=== PATIENT | male | born 1945 | race Two or more races ===

== ENCOUNTER 2024-07-31 12:04 | Outpatient (CLI) | payer MEDICAID ==
[2024-07-31 12:41] LABS: Basophils # (auto) 0.1 10 ^3/uL (0-0.2); Basophils % (auto) 0.9 % (0.0-2.0); Eosinophils # (auto) 0.2 10 ^3/uL (0-0.8); Eosinophils % (auto) 2.2 % (0.0-7.0); Hematocrit 50.5 % (41.0-53.0); Hemoglobin 16.9 g/dL (13.5-17.5); Lymphocytes # (auto) 3.2 10 ^3/uL (0.4-5.4); Lymphocytes % (auto) 32.9 % (10.0-50.0); Mean Corpuscular Hemoglobin 29.8 pg (28.0-32.0); Mean Corpuscular Hgb Conc. 33.6 g/dL (32.0-36.0); Mean Corpuscular Volume 88.8 fL (80.0-100.0); Monocytes # (auto) 0.9 10 ^3/uL (0-1.3); Monocytes % (auto) 8.9 % (0.0-12.0); Neutrophils # (auto) 5.3 10 ^3/uL (1.6-8.6); Neutrophils % (auto) 55.1 % (37.0-80.0); Nucleated Red Blood Cells % 0.1 %; Platelet Count (auto) 327 10^3/uL (140-450); Red Blood Cells 5.69 10^6/uL (4.5-5.90); Red Cell Distribution Width 15.3 % (11.8-14.3); White Blood Cell 9.6 10^3/uL (4.4-10.8)
[2024-07-31 13:12] LABS: Alanine Aminotransferase 26 U/L (7-40); Anion Gap 7 (5-15); BUN/Creatinine Ratio 15.1 (10.0-20.0); Blood Urea Nitrogen 14 mg/dL (9-23); Chloride 104 mmol/L (98-107); Glucose 88 mg/dL (74-106); Potassium 3.5 mmol/L (3.5-5.1); Sodium 143 mmol/L (136-145); Triglycerides 113 mg/dL (< 150)
[2024-07-31 13:13] LABS: Aspartate Aminotransferase 19 U/L (13-40); Cholesterol 142 mg/dL (< 200); LDL Cholesterol 81 mg/dL (< 100)
[2024-07-31 13:14] LABS: Calcium 10.5 mg/dL (8.7-10.4); Carbon Dioxide 32 mmol/L (20-31); HDL Cholesterol 35 mg/dL (40-59); Prostate Specific Antigen 6.66 ng/mL (0.0-4.0)
[2024-08-01 08:07] LABS: Prostate Specific Antigen 7.3 ng/mL (0.0-4.0)
[2024-08-01 15:07] LABS: Free Thyroxine Index 2.2 (1.2-4.9); PSA Free 1.39 ng/mL; Thyroxine (T4) 8.5 ug/dL (4.5-12.0)
== END 2024-07-31 17:00 | disposition home or self-care (01) ==
LOC: LAB 12:04
PROVIDERS: ATTEND Specialist
DX: S49.92XA Unspecified injury of left shoulder and upper arm, initial encounter (principal); J44.9 Chronic obstructive pulmonary disease, unspecified; E55.9 Vitamin D deficiency, unspecified; F09 Unspecified mental disorder due to known physiological condition; F03.90 Unspecified dementia, unspecified severity, without behavioral disturbance, psychotic disturbance, mood disturbance, and anxiety; Z12.11 Encounter for screening for malignant neoplasm of colon; Z12.5 Encounter for screening for malignant neoplasm of prostate; Z13.1 Encounter for screening for diabetes mellitus; Z13.220 Encounter for screening for lipoid disorders; R60.0 Localized edema; X58.XXXA Exposure to other specified factors, initial encounter; Y93.89 Activity, other specified; Y92.89 Other specified places as the place of occurrence of the external cause; Y99.8 Other external cause status
CPT/HCPCS: 36415; 80048; 80061; 82306; 82607; 83036; 84153; 84154; 84443; 84450; 84460; 85025

== ENCOUNTER 2024-12-25 12:20 | Outpatient (CLI) | payer MEDICAID ==
[2024-12-25 13:08] LABS: Urine Protein, UAD Negative (Negative)
[2024-12-26 12:07] LABS: Prostate Specific Antigen 5.9 ng/mL (0.0-4.0)
== END 2024-12-25 17:00 | disposition home or self-care (01) ==
LOC: LAB 12:20
PROVIDERS: ATTEND Urology
DX: N40.0 Benign prostatic hyperplasia without lower urinary tract symptoms (principal); R97.20 Elevated prostate specific antigen [PSA]
CPT/HCPCS: 81001; 84153; 84154; 87086